=== PATIENT | female | born 1965 | race Hispanic/Latino ===

== ENCOUNTER 2017-06-08 04:27 | Observation (INO) | payer SELFPAY ==
[2017-06-08] MEDS ORDERED: Nitroglycerin 0.4 MG TAB (25 Tab Bottle) ONE (04:51)
[2017-06-08 05:03] LABS: #Eosinphils 0.1 thou/uL (0.0-0.7); #Lymphocytes 1.7 thou/uL (1.20-3.40); #Monocytes 0.4 thou/uL (0.11-0.59); #Neutrophils 2.8 thou/uL (1.40-6.50); %Basophils 0.2 % (0.0-1.0); %Eosinophils 1.9 % (0.0-10.0); %Lymphocytes 34.5 % (21.0-51.0); %Monocytes 7.5 % (0.0-10.0); Hemoglobin 14.1 g/dL (12.0-16.0); Mean Corpuscular HGB CONC 35.7 g/dL (32.0-36.0); Mean Corpuscular Hemoglobin 31.8 pg (27.0-31.0); Mean Corpuscular Volume 89.1 fl (81.0-99.0); Mean Platelet Volume 9.1 fL (7.4-10.4); Platelet Count 192 thou/uL (130-400); RBC Distribution Width 11.4 % (11.5-14.5); Red Blood Cell (RBC) Count 4.45 mill/uL (4.20-5.40); White Blood Cell (WBC) Count 4.9 thou/uL (4.8-10.8)
[2017-06-08 05:34] LABS: Troponin I Less than 0.010 ng/mL (< 0.028)
[2017-06-08 05:35] LABS: ALT (SGPT) 32 U/L (8-55); AST (SGOT) 28 U/L (5-34); Albumin 4.1 g/dL (3.5-5.0); Alkaline Phosphatase 144 U/L (40-150); Anion Gap 15 mmol/L (10-20); BUN (Urea Nitrogen) 14 mg/dL (7.0-18.7); Bilirubin, Total 0.4 mg/dL (0.2-1.2); Calc. Creatinine Clearance 0 mL/min (70-130); Calcium 10.1 mg/dL (7.8-10.44); Carbon Dioxide 20 mmol/L (22-29); Chloride 106 mmol/L (98-107); Estimated GFR-MDRD 82; Globulin 3.6 g/dL (2.4-3.5); Glucose 123 mg/dL (70-105); Potassium 3.9 mmol/L (3.5-5.1); Protein, Total 7.7 g/dL (6.0-8.3); Sodium 137 mmol/L (136-145)
[2017-06-08] MEDS ORDERED: Aspirin 325 MG TAB ONE (05:40)
[2017-06-08] MEDS ORDERED: Morphine 4 MG/ML VIAL ONE (06:32)
--- NOTE | 2017-06-08 08:10 | RAD ---
AP VIEW CHEST: Date: 06/08/17 INDICATION: Chest pain and altered mental status. FINDINGS: There are low lung volumes that accentuated the cardiac silhouette and pulmonary vasculature. No foca l consolidation, pleural effusion, or pneumothorax is evident. IMPRESSION: Low lung volumes. No definite acute abnormality. POS: H
[2017-06-08 08:24] LABS: Troponin I Less than 0.010 ng/mL (< 0.028)
[2017-06-08] MEDS ORDERED: Ondansetron HCl/PF 4 MG/2 ML Vial IVP PRN ×2 (08:36→09:20)
[2017-06-08] MEDS ORDERED: Acetaminophen 325 MG TAB PO PRN ×2 (08:36→09:20)
[2017-06-08] MEDS ORDERED: Ondansetron ODT 4 MG TAB PO PRN ×2 (08:37→09:20)
[2017-06-08 09:07] VITALS: BMI 30.3
[2017-06-08] MEDS ORDERED: Nitroglycerin 0.4 MG TAB (25 Tab Bottle) PO PRN (09:19)
[2017-06-08] MEDS ORDERED: Loratadine 10 MG TAB PO PRN (09:20)
[2017-06-08] MEDS ORDERED: Artificial Tears 18 DROP/0.9 ML EA EYE PRN (09:20)
[2017-06-08] MEDS ORDERED: Diabetic Tussin 200 MG/10 ML UDCUP PO PRN (09:20)
[2017-06-08] MEDS ORDERED: Mag-Al 1200 mg/1200 mg/30 ML UDCUP PO PRN (09:20)
[2017-06-08] MEDS ORDERED: Milk Of Magnesia 30 ML UDCUP PO PRN (09:20)
[2017-06-08] MEDS ORDERED: Senokot 8.6 MG TAB PO PRN (09:20)
[2017-06-08] MEDS ORDERED: Chloraseptic Spray 180 ml Bottle PO PRN (09:20)
[2017-06-08] MEDS ORDERED: Loperamide HCl 2 MG CAP PO PRN (09:20)
[2017-06-08] MEDS ORDERED: Sodium Chloride 0.65% Nasal 44 ML BOT EA NARE PRN (09:20)
[2017-06-08] MEDS ORDERED: HYDROcodone/Acetaminophen 5/325 mg Tablet PO PRN (09:20)
[2017-06-08] MEDS ORDERED: Eucerin (Mineral Oil/Petrolatum,White) 30 gm Jar TOP PRN (09:20)
[2017-06-08] MEDS ORDERED: hydrALAZINE 20 MG/ML VIAL SLOW IVP PRN (09:20)
[2017-06-08] MEDS ORDERED: Temazepam 15 MG CAP PO PRN (09:20)
--- NOTE | 2017-06-08 09:32 | PDOC.PN ---
- Subjective Encounter Start Date: 06/08/17 Encounter Start Time: 09:30 -: old records requested/rev see H & P - Objective Resuscitation Status: Resuscitation Status FULL:Full Resuscitation MAR Reviewed: Yes Vital Signs & Weight: Vital Signs (12 hours) Temp Pulse Resp BP Pulse Ox 06/08/17 08:40 98.3 F 78 12 137/59 L 96 Weight Weight 171 lb 4.8 oz Result Diagrams: 06/08/17 04:53 06/08/17 04:53 Radiology Reviewed by me: Yes EKG Reviewed by me: Yes Phys Exam - Physical Examination Constitutional: NAD HEENT: PERRLA, moist MMs, sclera anicteric Neck: no JVD, supple Respiratory: no wheezing, no rales, no rhonchi Cardiovascular: RRR, no significant murmur, no rub Gastrointestinal: soft, non-tender, no distention, positive bowel sounds Musculoskeletal: no edema, pulses present Neurological: non-focal, normal sensation, moves all 4 limbs Psychiatric: normal affect, A&O x 3 Skin: no rash, normal turgor Dx/Plan (1) Chest pain Code(s): R07.9 - CHEST PAIN, UNSPECIFIED Status: Acute (2) Hypertension Code(s): I10 - ESSENTIAL (PRIMARY) HYPERTENSION Status: Chronic (3) Obesity (BMI 30.0-34.9) Code(s): E66.9 - OBESITY, UNSPECIFIED Status: Chronic - Plan cont current plan of care, plan discussed w/ family * stress test * H & P will be dictated later * will dc if stress test negative. Review of Systems - Review of Systems Eyes: negative: Pain, Vision Change, Conjunctivae Inflammation, Eyelid Inflammation, Redness, Other ENT: negative: Ear Pain, Ear Discharge, Nose Pain, Nose Discharge, Nose Congestion, Mouth Pain, Mouth Swelling, Throat Pain, Throat Swelling, Other Respiratory: negative: Cough, Dry, Shortness of Breath, Hemoptysis, SOB with Excertion, Pleuritic Pain, Sputum, Wheezing Cardiovascular: negative: chest pain, palpitations, orthopnea, paroxysmal nocturnal dyspnea, edema, light headedness, other Gastrointestinal: negative: Nausea, Vomiting, Abdominal Pain, Diarrhea, Constipation, Melena, Hematochezia, Other Genitourinary: negative: Dysuria, Frequency, Incontinence, Hematuria, Retention , Other Musculoskeletal: negative: Neck Pain, Shoulder Pain, Arm Pain, Back Pain, Hand Pain, Leg Pain, Foot Pain, Other Skin: negative: Rash, Lesions, Angel, Bruising, Other - Medications/Allergies Allergies/Adverse Reactions: Allergies Allergy/AdvReac Type Severity Reaction Status Date / Time No Known Allergies Allergy Unverified 06/08/17 08:35 Medications: Current Medications Acetaminophen (Tylenol) 650 mg PO Q4H PRN PRN Reason: Headache/Fever or Mild Pain Hydrocodone Bitart/Acetaminophen ([place] 5/325) 1 tab PO Q4H PRN PRN Reason: Moderate Pain (4-6) Al Hydroxide/Mg Hydroxide (Maalox) 15 ml PO Q4H PRN PRN Reason: Heartburn or Indigestion Artificial Tears (Tears Naturale) 0 drop EA EYE PRN PRN PRN Reason: Dry Eyes Aspirin (Aspirin) 325 mg PO DAILY BRITTANIE Famotidine (Pepcid) 20 mg PO BID BRITTANIE Guaifenesin (Robitussin Sf) 200 mg PO Q4H PRN PRN Reason: Cough Hydralazine HCl (Apresoline) 10 mg SLOW IVP Q4H PRN PRN Reason: Systolic BP > 180 Loperamide HCl (Imodium) 2 mg PO PRN PRN PRN Reason: Diarrhea/Loose Stools Loratadine (Claritin) 10 mg PO DAILYPRN PRN PRN Reason: Sinus Symptoms Magnesium Hydroxide (Milk Of Magnesium) 30 ml PO DAILYPRN PRN PRN Reason: Constipation Mineral Oil/White Petrolatum (Eucerin Cream) 0 gm TOP BIDPRN PRN PRN Reason: Dry Skin Nitroglycerin (Nitrostat) 0.4 mg PO Q5MIN PRN PRN Reason: Chest Pain Ondansetron HCl (Zofran Odt) 4 mg PO Q6H PRN PRN Reason: Nausea/Vomiting Ondansetron HCl (Zofran) 4 mg IVP Q6H PRN PRN Reason: Nausea/Vomiting Phenol (Chloraseptic [place] 180 Ml Bot) 0 ml PO PRN PRN PRN Reason: Sore Throat Senna (Senokot) 2 tab PO HSPRN PRN PRN Reason: Constipation Sodium Chloride (Flush - Normal Saline) 10 ml IVF PRN PRN PRN Reason: Saline Flush Sodium Chloride ([place] Nasal [place] 0.65%) 0 ml EA NARE QIDPRN PRN PRN Reason: Nasal Congestion Temazepam (Restoril) 15 mg PO HSPRN PRN PRN Reason: Insomnia
[2017-06-08 09:50] LABS: Cardiac Risk 5.1 (Less than 4.5)
[2017-06-08 13:49] VITALS: BP 122/58; TEMP 98.2
--- NOTE | 2017-06-08 13:55 | NM ---
CARDIAC SPECT: CLINICAL HISTORY: 51-year-old female with chest pain and hypertension. Family history of coronary artery disease. TECHNIQUE: A myocardial perfusion scan was performed using the single isotope one day protocol with technetium-9 9m sestamibi. 10 mCi were injected intravenously for the rest exam followed by 29 mCi for the stress exam. Pharmacologic stress with Adenosine was monitored and interpreted by Dr. Hernández. FINDINGS: Homogeneous tracer distribution is seen in the myocardial segments on stress and rest images without fixed or reversible defects. GATED SPECT LVEF: 82%. WALL MOTION EXAM: Normal. IMPRESSION: Normal myocardial perfusion scan. POS: VIRI
[2017-06-08] MEDS ORDERED: ADENOSINE 60 MG/20 ML VIAL ONE (15:06)
[2017-06-08 16:06] LABS: Troponin I Less than 0.010 ng/mL (< 0.028)
[2017-06-08] MEDS ORDERED: Famotidine 20 MG TAB PO SCH (21:00)
--- NOTE | 2017-06-08 22:02 | SS ---
PRIMARY CARE PHYSICIAN: [facility]. REASON FOR ADMISSION: Chest pain. DATE OF ADMISSION: 06/08/2017 TIME OF ADMISSION: 8:00 a.m. DATE OF DISCHARGE: 06/08/2017 TIME OF DISCHARGE: 5:00 p.m. HISTORY OF PRESENT ILLNESS: A 51-year-old female who speaks K[place] only and that is why hi story obtained with help of parts interpreter. Patient's couple of family member speaks in Swazi . They helped me to get history from her. Patient had chest pain at home, which was substernal in l ocation without any radiation, without any association of nausea, vomiting, diaphoresis. Patient fel t mild shortness of breath. Patient was feeling tingling, numbness sensation in her hand. Patient d id not have any motor weakness. She did not have any nausea or vomiting or diaphoresis. Patient nev er had this type of pain before. Intensity of pain was about 5/10. Pain was persistent up until she came to emergency room and patient was given nitroglycerin after that pain subsided. In the emergency room subsequently, patient did not have any further chest pain. Patient does not moraes ve any previous exertional chest pain, palpitation, or shortness of breath. She did not have any ass ociated dizziness, palpitation, or syncope. She denies any orthopnea, PND, or leg swelling. She den ies any calf tenderness. She denies any lower extremity edema. She denies any pleurisy. She denies any cough or hemoptysis. She denies any UTI symptoms. She denies any constipation, diarrhea, melena, or hematochezia. She de nies any abdominal pain. She denies any anxiety. She denies any acid reflux. She is not taking any NSAIDs. REVIEW OF SYSTEMS: Please see my HPI for pertinent positive and negative. All other review of syste ms reviewed and negative except as mentioned in the HPI. Constitutional: Weight loss or gain, abili ty to conduct usual activities. Skin: Rash, itching. Eyes: Double vision, pain. ENT/Mouth: Nose bleeding, neck stiffness, pain, tenderness. Cardiovascular: Palpitations, dyspnea on exertion, ort hopnea. Respiratory: Shortness of breath, wheezing, cough, hemoptysis, fever, or night sweats. Gas trointestinal: Poor appetite, abdominal pain, heartburn, nausea, vomiting, constipation, or diarrhea . Genitourinary: Urgency, frequency, dysuria, nocturia. Musculoskeletal: Pain, swelling. Neurolo gic/Psychiatric: Anxiety, depression. Allergy/Immunologic: Skin rash, bleeding tendency. ALLERGIES: No known drug allergy. CURRENT HOME MEDICATIONS: Lisinopril 10 mg p.o. daily. PAST MEDICAL HISTORY: Hypertension on lisinopril. PAST SURGICAL HISTORY: Reviewed and negative. SOCIAL HISTORY: Patient is , lives at home with family. No history of tobacco, alcohol, or i llicit drug abuse. FAMILY HISTORY: No strong family history of premature coronary artery disease, stroke, or cancer. PAST PSYCHIATRIC HISTORY: Reviewed and negative. EMERGENCY ROOM COURSE: Patient is given nitroglycerin 0.4 mg sublingual 3 times, aspirin 324 mg, and IV fluid 1 liter. PHYSICAL EXAMINATION: VITAL SIGNS: On arrival, blood pressure 146/67, pulse 106, respiratory rate 22, temperature 99.1, sa turation 96% on room air, weight 63.5 kilograms. GENERAL: Patient is currently alert, awake, no obvious acute distress. HEAD: Normocephalic, atraumatic. EYES: Pupils round, reactive to light. Extraocular muscle intact. ENT: Oropharynx within normal limits. Moist mucous membranes. No oral lesion, no pharyngeal erythe ma, no exudate. NECK: Supple, no JVD, no thyromegaly, no carotid bruit. No jugular venous distention. LUNGS: Clear to auscultation without any rhonchi or rales. CARDIAC: S1, S2 regular. No murmur, no gallop, no rub. ABDOMEN: Soft with no Shelley sign, no epigastric tenderness, no organomegaly, no mass, no suprapubic tenderness. Bowel sounds present, no distention. BACK: Within normal limits. No CVA tenderness. EXTREMITIES: Upper extremity passive movement of all joints are normal. Lower extremity, no edema. Good peripheral pulsation, no calf tenderness. SKIN: No skin rash. HEMATOLOGIC: No lymphadenopathy. PSYCHIATRIC: Normal affect. NEUROLOGIC: Nonfocal examination. LABORATORY DATA: Significant labs, EKG showing sinus tachycardia, nonspecific ST-T changes. Chest x -ray based on my review, no acute cardiopulmonary process. BMP: Sodium 137, potassium 3.9, chloride 106, carbon dioxide 20, anion gap 15, BUN 14, creatinine 0.75, glucose 123, calcium 10.1. LFT: Pro tein 7.7, albumin 4.1, AST 28, ALT 32, alkaline phosphatase 144, CK-MB 1.0, troponin I less than 0.01 0, BNP 10.3. CBC: WBC 4.9, hemoglobin 14.1, platelet 192. Subsequently, cardiac enzymes negative x 3, triglyceride 230, cholesterol 193, LDL 109, HDL 38. ASSESSMENT AND PLAN: 1. Acute chest pain. Patient's EKG is showing sinus tachycardia without any acute ischemic changes. Her troponin is negative. First time and second was also negative. At that point, we decided to d o stress test for diagnostic reason. Patient does not have any gastroesophageal reflux disease sympt oms and she does not have any local tenderness. She does have metabolic syndrome including obesity, borderline diabetes as well as dyslipidemia. This patient is at mild risk for having coronary artery disease. Patient's description is not consistent with any thromboembolic disorder. At this point a stress test is done and stress test reported been normal. Patient subsequently cardiac enzymes were also negative and telemetry remained unremarkable. In this way, we have completely excluded a cardi ac etiology. Patient was also chest pain free subsequently while in hospital and once stress test wa s negative, we decided to let her go home. 2. Mildly elevated blood sugar and LDL cholesterol. Patient also has obesity with BMI 30. In this way, patient is having metabolic syndrome. I provided patient education about diet, exercise, weight loss, and healthy lifestyle measures. Patient will need follow up with primary care physician and m onitoring of blood sugar as well as cholesterol status. At this point, patient does not need any med ication, but diet and exercise therapy was initiated. 3. Hypertension. Patient will continue lisinopril 10 mg p.o. daily. 4. Obesity with BMI 30. Dietary education given, weight loss education given. 5. Deep venous thrombosis prophylaxis not needed, because patient is expected discharge later on tod ay. 6. Gastrointestinal prophylaxis, Pepcid 20 mg p.o. b.i.d. CODE STATUS: Patient is FULL CODE. Patient's is surrogate decision maker. Disposition plan based on stress test result. DISCHARGE DISPOSITION: Home. PRIMARY DISCHARGE DIAGNOSES: Chest pain, ruled out acute coronary syndrome. SECONDARY DISCHARGE DIAGNOSES: Metabolic syndrome, hypertension, obesity with BMI 30. PRIMARY PROCEDURES AND OPERATIONS: None. RADIOLOGICAL INVESTIGATION: Chest x-ray was normal without any acute cardiopulmonary process. Stres s test was done, which was negative for any reversible ischemia. LABORATORY DATA: Significant labs CBC and BMP normal. Cardiac enzymes negative. BNP normal. LDL 1 09. DISCHARGE MEDICATIONS: Patient will continue lisinopril 10 mg p.o. daily. CONTRAINDICATIONS: None. CODE STATUS: FULL CODE. INPATIENT DELINQUENT TAX COLLECTOR ASSISTANT: None. ALLERGIES: No known drug allergy. DISCHARGE PLAN: Post hospital, patient is instructed to follow up with primary care physician. HOSPITAL COURSE: Patient was admitted for acute chest pain. We have ruled out acute coronary syndro me. Serial cardiac enzymes negative. Stress test was normal. Patient was subsequently chest pain f ree. Telemetry remained unremarkable. Patient will continue all her previous medication. Patient d oes have metabolic syndrome and that is why dietary instruction given, weight loss education, and hea lthy-lifestyle measure including exercise discussed. Patient was admitted and discharged on the same day.
[2017-06-09] MEDS ORDERED: Aspirin 325 MG TAB PO SCH (09:00)
== END 2017-06-08 17:23 | disposition home or self-care (01) ==
LOC: ERS 04:27 → 2SW 08:03
PROVIDERS: ADMIT Internal Medicine; ATTEND Internal Medicine
DX: R07.2 Precordial pain (principal); I10 Essential (primary) hypertension; R73.9 Hyperglycemia, unspecified; E78.00 Pure hypercholesterolemia, unspecified; E66.9 Obesity, unspecified; Z68.30 Body mass index [BMI] 30.0-30.9, adult; Z79.899 Other long term (current) drug therapy
CPT/HCPCS: 36415; 36416; 71045; 78452; 80053; 80061; 82553; 83880; 84484; 85025; 93005; 93017; 96360; A9500; G0378; J0153; J2270

== ENCOUNTER 2017-08-24 09:04 | Emergency (ER) | payer OTHER, SELFPAY | END 2017-08-24 09:49 | disposition home or self-care (01) | LOC: ERS 09:04 | DX: B86 Scabies (principal); I10 Essential (primary) hypertension | CPT/HCPCS: 99282 ==